=== PATIENT | female | born 1980 | race Caucasian/White ===

== ENCOUNTER → 2024-10-06 | Outpatient (CLI) | payer BC, SELFPAY ==
[2024-10-06 09:06] LABS: Parathyroid Hormone Intact 72.1 pg/ml (18.5-88.0)
[2024-10-06 09:25] LABS: Collection Type, Urine Clean Catch
[2024-10-06 09:33] LABS: Albumin, Serum 4.3 gm/dL (3.5-5.0); Anion Gap 5 (7-16); BUN/Creatinine Ratio 23 Ratio (12-20); Blood Urea Nitrogen 21 mg/dL (9-23); Calcium 9.4 mg/dL (8.3-10.6); Calcium (Corrected) 9.4 mg/dL (8.5-10.1); Carbon Dioxide 28.2 mMol/L (20.0-31.0); Chloride 105 mMol/L (98-107); Creatinine (Component) 0.9 mg/dL (0.6-1.3); Glucose 86 mg/dL (74-106); Osmolality,Calculated 277 (275-295); Phosphorous 2.6 mg/dL (2.4-5.1); Potassium 4.2 mMol/L (3.4-5.1); Sodium 138 mMol/L (136-145); eGFR > 60 See Note
[2024-10-06 10:29] LABS: Creatinine MALB Rnd Ur 141 mg/dL (30-125); Microalbumin, Random Urine < 3 mg/L (0-300)
[2024-10-06 11:04] LABS: Bacteria,Urine 3+; Bilirubin,Urine Negative (Negative); Blood,Urine 1+ (Negative); Clarity,Urine Clear (Clear/Hazy); Color,Urine Yellow (Lt Yel-Yel); Glucose, Urine Negative (Negative); Ketones,Urine Negative (Negative); Leukocyte Esterase,Urine Negative (Negative); Nitrite,Urine Positive (Negative); Protein,Urine Trace (Neg - Trace); RBC,Urine 6 /hpf (0-3); Specific Gravity,Urine 1.032 (1.001-1.035); Squamous Epithelial Cell,Urine 15 /hpf (0-5); Urobilinogen,Urine Negative mg/dL (0.0-1.0); WBC,Urine 4 /hpf (0-5)
== END | disposition home or self-care (01) ==
LOC: COPL 07:58
PROVIDERS: PCP Internal Medicine; Referring Provider Internal Medicine; Visit Provider Internal Medicine
DX: N20.0 Calculus of kidney (principal)
CPT/HCPCS: 36415; 80069; 81001; 82043; 82570; 83970

== ENCOUNTER → 2024-11-01 | Outpatient (CLI) | payer BC, SELFPAY ==
[2024-11-01 09:05] LABS: Collection Type, Urine Clean Catch
[2024-11-01 09:32] LABS: Basophils % (Auto) 1 % (0-2.5); Eosinophils # (Auto) 0.2 Thou/mm3 (0.0-0.5); Eosinophils % (Auto) 3 % (0-10); Hematocrit 33.5 % (36.0-46.0); Hemoglobin 10.5 g/dL (12.0-16.0); Immature Granulocytes % (Auto) 0 % (0-0); Immature Granulocytes Auto 0.01 Thou/mm3 (0.00-0.00); Lymphocytes # (Auto) 2.3 Thou/mm3 (1.0-4.8); Lymphocytes % (Auto) 37 % (10-50); Mean Corpuscular HGB Conc 31.3 g/dl (31.0-37.0); Mean Corpuscular Hemoglobin 25.4 pg (25.0-35.0); Mean Corpuscular Volume 81 fL (80-100); Monocytes # (Auto) 0.6 Thou/mm3 (0.0-0.8); Monocytes % (Auto) 9 % (0-12); Neutrophils # (Auto) 3.2 Thou/mm3 (1.8-7.7); Neutrophils % (Auto) 51 % (37-80); Nucleated Red Blood Cell % 0 /100 WBC (0); Platelet Count 311 Thou/mm3 (140-440); RDW Standard Deviation 45.1 fL (36.4-46.3); Red Blood Count 4.14 Miln/mm3 (4.00-5.20); White Blood Count 6.3 Thou/mm3 (3.6-11.0)
[2024-11-01 09:48] LABS: Albumin, Serum 4.3 gm/dL (3.5-5.0); Anion Gap 11 (7-16); BUN/Creatinine Ratio 19 Ratio (12-20); Blood Urea Nitrogen 17 mg/dL (9-23); Calcium 9.3 mg/dL (8.3-10.6); Calcium (Corrected) 9.3 mg/dL (8.5-10.1); Carbon Dioxide 25.5 mMol/L (20.0-31.0); Chloride 105 mMol/L (98-107); Creatinine (Component) 0.9 mg/dL (0.6-1.3); Glucose 87 mg/dL (74-106); Osmolality,Calculated 281 (275-295); Phosphorous 2.9 mg/dL (2.4-5.1); Potassium 4.2 mMol/L (3.4-5.1); Sodium 141 mMol/L (136-145); eGFR > 60 See Note
[2024-11-01 10:01] LABS: Bacteria,Urine 4+; Bilirubin,Urine Negative (Negative); Blood,Urine 2+ (Negative); Clarity,Urine Clear (Clear/Hazy); Color,Urine Yellow (Lt Yel-Yel); Glucose, Urine Negative (Negative); Ketones,Urine Negative (Negative); Leukocyte Esterase,Urine Negative (Negative); Nitrite,Urine Negative (Negative); PH,Urine 5.5 (5.0-7.0); Protein,Urine Trace (Neg - Trace); RBC,Urine 17 /hpf (0-3); Specific Gravity,Urine 1.035 (1.001-1.035); Squamous Epithelial Cell,Urine 10 /hpf (0-5); Urobilinogen,Urine Negative mg/dL (0.0-1.0); WBC,Urine 3 /hpf (0-5)
== END | disposition home or self-care (01) ==
LOC: COPL 07:49
PROVIDERS: PCP Emergency Medicine; Referring Provider Urology; Visit Provider Internal Medicine
DX: N20.0 Calculus of kidney (principal)
CPT/HCPCS: 36415; 80069; 81001; 85025

== ENCOUNTER → 2024-11-16 | Outpatient (CLI) | payer BC, SELFPAY ==
--- NOTE | 2024-11-16 08:30 | XR_ITS ---
Examination: CT abdomen and pelvis without contrast. Coronal 3-D reconstructions. Sagittal 2-D reconstructions. Date and time of exam:November 16, 2024 at 0806 hrs. Indications: Right upper abdominal pain beginning 6 months ago, history left kidney surgery October 2022 CTDI: vol (mGy): 9.21 DLP: (mGycm): 447 Technique: Axial images of the abdomen have been obtained, 3 mm slice thickness Intravenous contrast material has not been administered. Low dose protocols were performed. One or more of the following dose reduction techniques were used; automated exposure control, adjustment of the mA and/or KV according to patient size, use of iterative reconstruction technique. Findings: Gastric sutures No focal liver or splenic lesions 6 mm right renal calculus, no hydronephrosis Absent left kidney Tiny gallstones Aorta normal size. No bowel obstruction. Normal appendix. No diverticulitis Bladder intact Impression: Nonobstructing right renal calculus Cholelithiasis Normal appendix
== END | disposition home or self-care (01) ==
PROVIDERS: Referring Provider Internal Medicine; Visit Provider Internal Medicine
DX: N20.0 Calculus of kidney (principal); K80.20 Calculus of gallbladder without cholecystitis without obstruction
CPT/HCPCS: 74176

== ENCOUNTER → 2024-12-19 | Outpatient (BNVA) | payer BC, SELFPAY | END | disposition home or self-care (01) | PROVIDERS: PCP Internal Medicine; Referring Provider Internal Medicine; Visit Provider Urology | DX: N20.0 Calculus of kidney (principal); Q60.0 Renal agenesis, unilateral; I10 Essential (primary) hypertension | CPT/HCPCS: 81003; 99212; G0463 ==

== ENCOUNTER → 2024-12-20 | Outpatient (CLI) | payer BC, SELFPAY ==
--- NOTE | 2024-12-20 08:40 | XR_ITS ---
Examination: CT abdomen and pelvis without contrast. Coronal 3-D reconstructions. Sagittal 2-D reconstructions. Date and time of exam:December 20, 2024 0848 hours Comparison November 16, 2024 INDICATIONS: History left nephrectomy, right-sided flank pain hematuria beginning 2 weeks ago CTDI: vol (mGy): 8.71 DLP: (mGycm): 477 Technique: Axial images of the abdomen have been obtained, 3 mm slice thickness Intravenous contrast material has not been administered. Low dose protocols were performed. One or more of the following dose reduction techniques were used; automated exposure control, adjustment of the mA and/or KV according to patient size, use of iterative reconstruction technique. Findings: No focal liver or splenic lesion Small gallstones No pancreatic mass Upper pole right renal calculus 5 mm No hydronephrosis or ureteral calculi Aorta normal size No bowel obstruction Absent left kidney Normal appendix No diverticulitis No bladder mass or bladder calculi Advanced degenerative disc disease L5-S1 IMPRESSION: 5 mm upper pole right renal calculus No hydronephrosis or ureteral calculi Normal appendix No bladder mass or bladder calculi
== END | disposition home or self-care (01) ==
LOC: SCAT 08:32
PROVIDERS: Referring Provider Urology; Visit Provider Urology
DX: N20.0 Calculus of kidney (principal)
CPT/HCPCS: 74176

== ENCOUNTER → 2025-01-08 | Outpatient (BNVA) | payer BC, SELFPAY | END | disposition home or self-care (01) | PROVIDERS: PCP Nurse Practitioner Family; Referring Provider Nurse Practitioner Family; Visit Provider Urology | DX: N20.0 Calculus of kidney (principal); Z87.440 Personal history of urinary (tract) infections; Z87.442 Personal history of urinary calculi; Z98.84 Bariatric surgery status; Z90.5 Acquired absence of kidney; I10 Essential (primary) hypertension; K21.9 Gastro-esophageal reflux disease without esophagitis | CPT/HCPCS: 81003; 99212; G0463 ==